=== PATIENT | female | born 1965 | race African-American/Black ===

== ENCOUNTER 2024-04-13 08:12 | Outpatient (RCR) | payer BC, SELFPAY | END 2024-07-03 10:51 | disposition home or self-care (01) | LOC: ANHDMC 08:12 | PROVIDERS: PCP Internal Medicine; Visit Provider Clinical Nurse Specialist | DX: E11.9 Type 2 diabetes mellitus without complications (principal); Z71.89 Other specified counseling | CPT/HCPCS: G0108 ==

== ENCOUNTER 2025-07-02 18:30 | Emergency (ER) | payer BC, SELFPAY ==
[2025-07-02 18:50] VITALS: BP 113/84; PULSE 85; RESP 16; TEMP 36.1; O2SAT 100
--- NOTE | 2025-07-02 19:32 | ED.SKABFB ---
HPI - Skin/Abscess/Foreign Bdy General Chief complaint: Skin/Abscess/Foreign Body Stated complaint: Spider Bite Time Seen by Provider: 07/02/25 19:30 Source: patient and RN notes reviewed Mode of arrival: ambulatory Limitations: dementia History of Present Illness HPI narrative: 60-year-old female presents with concern of for spider bite on her right hand. Reports earlier today she noticed an itchy area on her right dorsal hand beneath 2nd digit. Reports since then it has become red, swollen, slightly tender and feels tight. She reports a blister to the area. MD complaint: other (Redness) Related Data Home Medications ?Medication ?Instructions ?Recorded ?Confirmed ?Last Taken ?Type aspirin 81 mg tablet,delayed 81 mg PO DAILY 10/21/23 05/08/25 Unknown History release (Adult Low Dose Aspirin) estradiol 0.01% (0.1 mg/gram) 1 g vaginal 2XW 10/21/23 05/08/25 Unknown History vaginal cream metoprolol succinate 25 mg 25 mg PO DAILY 10/21/23 05/08/25 Unknown History tablet,extended release 24 hr pantoprazole 40 mg granules 40 mg PO DAILY 10/21/23 05/08/25 Unknown History delayed-release for susp in packet rosuvastatin 10 mg tablet 10 mg PO DAILY 10/21/23 05/08/25 Unknown History triamcinolone acetonide 0.1 % 1 applic topical DAILY PRN 10/21/23 05/08/25 Unknown History topical cream Allergies Allergy/AdvReac Type Severity Reaction Status Date / Time morphine Allergy Intermediate Itching Verified 05/08/25 13:00 tramadol Allergy Intermediate Dizziness Verified 05/08/25 13:00 cylins Allergy Mild Difficulty Uncoded 05/08/25 13:00 Breathing Review of Systems Review of Systems: CONSTITUTIONAL: Denies malaise, chills, sweats, or fever. EYES: Denies redness, or discharge. ENT: Denies rhinorrhea, congestion, swollen lips, swollen tongue CARDIOVASCULAR: Denies chest pain, palpitations, or edema. RESPIRATORY: Denies cough or dyspnea. GASTROINTESTINAL: Denies abdominal pain, nausea, vomiting SKIN: Reports redness, swelling to the dorsal right hand. Denies purulent drainage, vesicles, bullae, numbness, pain beyond proportion MUSCULOSKELETAL: Denies joint pain or myalgia. NEUROLOGIC: Denies headache. All systems reviewed & are unremarkable except as noted in HPI and below PMFSH Past Medical History Medical History Screening for endocrine disorder Left knee pain Stress incontinence Pain of lower leg Generalized pruritus STD exposure Hyperglycemia Screening for lipoid disorders External hemorrhoids Back Pain Myocardial infarction Encounter to establish care Headache, migraine GERD (gastroesophageal reflux disease) Arthritis Allergies Family History Family History Mother Asthma Diabetes mellitus Hypertension Depression Anxiety Heart disease Cerebrovascular accident Thyroid disorder Sibling Asthma Diabetes mellitus Hypertension Grandparent Diabetes mellitus Social History Social History Social History: Caffeine Coffee Daily Pepsi Daily Smoking status: Never smoker Second hand tobacco smoke exposure: No Alcohol intake: current Alcohol use details: Social Drinker Substance use: never Substance use type: does not use Do You Feel Safe in your Home?: Yes Lack of Transportation: No Lack of Food: Never True Current Housing: I Have Housing Concerned About Future Housing: No Difficulty Paying Gas/Electric Bills: No Difficulty Paying for Meds: No Currently Unemployed: No Education: Grade School Difficulty w/ Childcare or Family Care: No Living arrangements: other Additional living arrangements comments: Significant other Occupation/Education: occupation Additional occupation/education comments: [employer] Gender identity (if verbalized by the patient): Female Sexual Orientation (if Verbalized by the Patient): Straight or Heterosexual Agree to blood products: Yes Comments At time of signature, agree with nursing past medical, surgical, social and family history. There is no relevant family history pertinent to the presenting complaint Exam Narrative: GENERAL: Well-appearing, well-nourished, and in no acute distress. HEAD: Normocephalic, atraumatic. EYES: PERRLA, conjunctivae clear ENT: Mucous membranes moist. NECK: Supple. No lymphadenopathy CHEST: Clear to auscultation. No respiratory distress. HEART: Regular rate and rhythm. SKIN: Warm, dry. Erythema, induration, tenderness, warmth with sharp margins and a central fluid-filled blister noted to the dorsal right hand beneath the 2nd digit. No vesicles, bullae, necrosis, ecchymosis, crepitus noted. NEURO: Alert and oriented x3. PSYCH: Normal mood and affect Course Course Emergency Course: Patient is aware of diagnosis, understands and agrees to treatment plan. Anticipatory guidance given. Patient agrees to follow-up as directed and is aware of reasons to seek care at the emergency department. Portions of this record may have been created with voice recognition software Level of Care: Express Care Visit Vital Signs Vital signs: Vital Signs Temperature 97 F L 07/02/25 18:50 Pulse Rate 85 07/02/25 18:50 Respiratory Rate 16 07/02/25 18:50 Blood Pressure 113/84 07/02/25 18:50 Pulse Oximetry 100 07/02/25 18:50 Temperature 97 F L 07/02/25 18:50 Pulse Rate 85 07/02/25 18:50 Respiratory Rate 16 07/02/25 18:50 Blood Pressure 113/84 07/02/25 18:50 Pulse Oximetry 100 07/02/25 18:50 Reviewed. MDM - Skin/Abscess/Foreign Bdy MDM Narrative Medical decision making narrative: I evaluated this in the [facility]. History is obtained from patient who is an independent historian and physical exam was performed.? Available medical records were reviewed. ? Exam findings and relevant testing show no acute concerns or changes; patient is non-toxic appearing and is in no distress. Does not appear at this time to be erythema multiforme, bullous, SJS, TEN; no evidence at this time to suggest RMSF, NSTI, endocarditis or Lyme disease; patient looks well, nontoxic and is tolerating oral intake; no neurologic signs or symptoms; no headache, photophobia or neck pain; afebrile.? Patient does not have history of of penetrating trauma, laceration, blunt trauma, recent surgery, immunosuppression, malignancy, obesity, alcoholism, corticosteroid use.? Discussed the importance of follow-up, patient agrees; question, cellulitis versus necrotizing soft tissue infection versus abscess.?? Patient is appropriate for outpatient treatment and follow-up. Critical Care Time Critical Care Time Critical Care Time: No Discharge Plan Discharge Clinical Impression: Insect bite of upper extremity with infection Patient Disposition: Home Condition: Stable Instructions: Antibiotic Form, Cellulitis (ED) Additional Instructions: Please follow up with your Primary Care Doctor within 48-72 hours - call for an appointment. Rest and elevate affected area; apply moist heat 3-4 times daily for 10-15 minutes. Take Motrin 600mg every 8 hours with food for pain. Please take Antibiotics as directed. If you experience any worsening redness, swelling, streaking (red lines), fever or chills please go to the ER Patient Language: Sami Prescriptions: New penicillin V potassium 500 mg tablet 500 mg PO Q12H 10 Days Qty: 20 0RF No Action albuterol sulfate 90 mcg/actuation HFA aerosol inhaler 1 puff inhalation Q4H PRN (Reason: shortness of breath or wheezing) Qty: 8.5 1RF metoprolol succinate 25 mg tablet extended release 24 hr 25 mg PO DAILY rosuvastatin 10 mg tablet 10 mg PO DAILY pantoprazole [address] for susp in packet 40 mg PO DAILY aspirin [Adult Low Dose Aspirin] 81 mg tablet,delayed release (DR/EC) 81 mg PO DAILY estradiol 0.01 % (0.1 mg/gram) cream 1 g vaginal 2XW triamcinolone acetonide 0.1 % cream 1 applic topical DAILY PRN hydrocortisone [Proctosol HC] 2.5 % cream with perineal applicator 1 applic RECTAL BID PRN (Reason: hemorrhoids) Qty: 30 1RF Ubrelvy 50 mg tablet 50 mg PO ONCE Qty: 16 2RF Rx Instructions: as a single dose; may repeat once in >=2 hours after first dose if needed scopolamine base [Transderm-Scop] 1 mg over 3 days patch 3 day 1 patch transdermal Q3D PRN (Reason: motion sickness) Qty: 4 0RF (DME) Blood Glucose Test Strip See Rx Instructions .Route Qty: 50 3RF Rx Instructions: Use to check BS once daily. (DME) lancets 30 gauge misc See Rx Instructions .Route Qty: 100 3RF Rx Instructions: Use to check BS once daily. (DME) blood-glucose meter [Accu-Chek Guide Me Glucose Mtr] Misc See Rx Instructions .ROUTE .COMPLEX Qty: 1 0RF Dose Instruction: USE TO CHECK BLOOD SUGAR ONCE DAILY Rx Instructions: USE TO CHECK BLOOD SUGAR ONCE DAILY meloxicam 15 mg tablet 15 mg PO DAILY Qty: 30 1RF Mounjaro 7.5 mg/0.5 mL pen injector 7.5 mg subcut WEEKLY Qty: 2 1RF trazodone 50 mg tablet 50 mg PO QHS PRN (Reason: insomnia) Qty: 90 1RF fluticasone propionate [Flonase Allergy Relief] 50 mcg/actuation spray,suspension 1 spray intranasal Q12H Qty: 48 0RF Rx Instructions: administer into each nostril Follow-up/Referrals: Zaynab Anderson APRN, MENTAL HEALTH COORDINATOR-C [Primary Care Provider, Internal Medicine] Time of Disposition: 19:40
== END 2025-07-02 19:42 | disposition home or self-care (01) ==
PROVIDERS: Emergency Provider Nurse Practitioner; PCP Clinical Nurse Specialist
DX: S60.561A Insect bite (nonvenomous) of right hand, initial encounter (principal); L08.9 Local infection of the skin and subcutaneous tissue, unspecified; W57.XXXA Bitten or stung by nonvenomous insect and other nonvenomous arthropods, initial encounter; K21.9 Gastro-esophageal reflux disease without esophagitis; M19.90 Unspecified osteoarthritis, unspecified site; I25.2 Old myocardial infarction; Z79.82 Long term (current) use of aspirin
CPT/HCPCS: 99213; G0463